=== PATIENT | female | born 1940 | race Caucasian/White ===

== ENCOUNTER 2024-03-12 15:34 | Outpatient (REF) | payer MEDICARE, SELFPAY ==
[2024-03-12 15:47] LABS: C & S Indicated? C&S Done As Ordered
[2024-03-12 15:48] LABS: RBC >50 HPF (0-2); WBC >50 HPF (0-5)
== END 2024-03-12 15:35 | disposition home or self-care (01) ==
LOC: NCHCN 15:34
PROVIDERS: Visit Provider Physician Assistant Medical
DX: R35.0 Frequency of micturition (principal); B95.2 Enterococcus as the cause of diseases classified elsewhere; R82.998 Other abnormal findings in urine
CPT/HCPCS: 87077; 81015; 87086; 87186